=== PATIENT | female | born 1945 ===

== ENCOUNTER → 2024-10-11 12:31 | Outpatient (REF) | payer MEDICARE, SELFPAY ==
[2024-10-11 13:06] LABS: % Basophils 0.1 % (0-2); % Immature Granulocytes 0.1 % (0-0.5); % Lymphocytes 23.7 % (20.5-51.1); % Monocytes 9.3 % (1.7-9.3); % Neutrophils 66.8 % (42.2-75.2); Absolute Lymphocytes 1.8 10^3/uL (1.2-3.4); Absolute Monocytes 0.7 10^3/uL (0.1-0.6); Hemoglobin 13.4 g/dL (12.0-16.0); Mean Corp Hgb Conc. 32.7 g/dL (33.0-37.0); Mean Corpuscular Hgb 31.8 pg (27.0-31.0); Mean Corpuscular Volume 97.4 fL (81.0-99.0); Mean Platelet Volume 10.2 fL (7.4-10.4); Nucleated Red Blood Cells % 0 %; Platelet Count 272 10^3/uL (130-400); Red Blood Cell Count 4.21 10^6/uL (4.20-5.40); Red Cell Dist. Width 14.1 % (11.5-14.5); White Blood Cell Count 7.4 10^3/uL (4.8-10.8)
[2024-10-11 14:06] LABS: Free T4 1.15 ng/dl (0.78-2.19); Vitamin D, 25-OH*** 105 ng/mL (30-80)
[2024-10-11 14:19] LABS: TSH 2.08 uIU/ml (0.47-4.68)
[2024-10-11 14:22] LABS: ALT (SGPT) 14 U/L (0-35); AST (SGOT) 21 U/L (14-36); Albumin 4.1 g/dl (3.5-5.0); Alkaline Phosphatase 51 U/L (38-126); Blood Urea Nitrogen 14 mg/dl (7-17); Calcium 9.9 mg/dl (8.4-10.2); Carbon Dioxide 30 mmol/L (22-30); Chloride 106 mmol/L (98-107); Glucose 76 mg/dl (70-99); HDL Cholesterol 62 mg/dl; LDL Cholesterol, Calculated 86 mg/dl; Potassium 4.2 mmol/L (3.5-5.1); Sodium 143 mmol/L (135-145); Total Bilirubin 0.9 mg/dl (0.2-1.3); Total Cholesterol 174 mg/dl (50-199); Total Protein 6.4 g/dl (6.3-8.2); Triglyceride 132 mg/dl (10-149); Very Low Density Lipoprotein 26 mg/dl (0-30); eGFR > 60.00
[2024-10-11 14:39] LABS: Vitamin B12 < 159 pg/ml (239-931)
[2024-10-13 23:03] LABS: Total T3 (Sendout) 103 ng/dL (80-200)
== END ==
LOC: OLABN 12:31
PROVIDERS: ATTENDING PHYSICIAN Student in an Organized Health Care Education/Training Program
DX: E03.9 Hypothyroidism, unspecified (principal); E78.5 Hyperlipidemia, unspecified; E55.9 Vitamin D deficiency, unspecified; E53.8 Deficiency of other specified B group vitamins
CPT/HCPCS: 36415; 80053; 80061; 82306; 82607; 84439; 84443; 84480; 85025

== ENCOUNTER → 2024-10-22 22:20 | Outpatient (REF) | payer MEDICARE, SELFPAY ==
[2024-10-23 10:25] LABS: Urine Albumin Negative (Neg - Trace); Urine Bilirubin Negative (Negative); Urine Character Clear (Clear); Urine Color Yellow; Urine Glucose Negative (Negative); Urine Ketone Negative (Negative); Urine Leukocyte 2+ (Negative); Urine Nitrite Negative (Negative); Urine Occult Blood 1+ (Negative); Urine Specific Gravity 1.015 (<1.030); Urine Urobilinogen Negative (Neg - 1+)
[2024-10-23 10:55] LABS: Urine Squamous Cell >30 /LPF (Few)
[2024-10-23 10:56] LABS: Urine Bacteria Few (Negative); Urine Red Blood Cell 0-2 /HPF (0-2)
== END ==
LOC: OLABN 22:20
PROVIDERS: ATTENDING PHYSICIAN Student in an Organized Health Care Education/Training Program
DX: R39.15 Urgency of urination (principal)
CPT/HCPCS: 81003; 81015; 87086

== ENCOUNTER → 2024-10-25 02:30 | Outpatient (REF) | payer MEDICARE, SELFPAY ==
[2024-10-25 13:54] LABS: Urine Albumin 1+ (Neg - Trace); Urine Bilirubin Negative (Negative); Urine Character Clear (Clear); Urine Color Yellow; Urine Glucose Negative (Negative); Urine Ketone 1+ (Negative); Urine Leukocyte Negative (Negative); Urine Nitrite Negative (Negative); Urine Occult Blood Negative (Negative); Urine Urobilinogen Negative (Neg - 1+)
[2024-10-25 15:18] LABS: Urine Amorphous Seen; Urine Mucus Moderate; Urine Squamous Cell >30 /LPF (Few)
[2024-10-25 15:19] LABS: Urine Bacteria Few (Negative); Urine Red Blood Cell 0-2 /HPF (0-2)
== END ==
LOC: OLABN 02:30
PROVIDERS: ATTENDING PHYSICIAN Student in an Organized Health Care Education/Training Program
DX: R39.15 Urgency of urination (principal)
CPT/HCPCS: 81003; 81015; 87086

== ENCOUNTER → 2024-11-25 09:30 | Outpatient (REF) | payer MEDICARE, SELFPAY ==
[2024-11-25 12:14] LABS: Vitamin D, 25-OH*** > 126 ng/mL (30-80)
== END ==
LOC: OLABN 09:30
PROVIDERS: ATTENDING PHYSICIAN Student in an Organized Health Care Education/Training Program
DX: E55.9 Vitamin D deficiency, unspecified (principal)
CPT/HCPCS: 36415; 82306

== ENCOUNTER → 2025-01-12 10:30 | Outpatient (REF) | payer MEDICARE, SELFPAY ==
[2025-01-12 15:50] LABS: Urine Albumin Negative (Neg - Trace); Urine Bilirubin Negative (Negative); Urine Character Clear (Clear); Urine Color Yellow; Urine Glucose Negative (Negative); Urine Ketone Negative (Negative); Urine Leukocyte 1+ (Negative); Urine Nitrite Negative (Negative); Urine Occult Blood Negative (Negative); Urine Urobilinogen Negative (Neg - 1+)
[2025-01-12 16:01] LABS: Urine Squamous Cell 16-20 /LPF (Few)
[2025-01-12 16:02] LABS: Urine Bacteria Moderate (Negative); Urine Red Blood Cell 0-2 /HPF (0-2)
== END ==
LOC: OLABN 10:30
PROVIDERS: ATTENDING PHYSICIAN Student in an Organized Health Care Education/Training Program
DX: R35.0 Frequency of micturition (principal)
CPT/HCPCS: 81003; 81015; 87086

== ENCOUNTER → 2025-01-18 08:49 | Outpatient (REF) | payer MEDICARE, SELFPAY ==
[2025-01-18 10:34] LABS: Iron 106 ug/dl (37-170)
[2025-01-18 10:38] LABS: Urine Character Clear (Clear)
[2025-01-18 10:46] LABS: Total Iron Binding Capacity 278 ug/dl (265-497)
[2025-01-18 11:52] LABS: Urine Squamous Cell >30 /LPF (Few)
[2025-01-18 11:53] LABS: Urine Red Blood Cell 0-2 /HPF (0-2)
== END ==
LOC: OLABN 08:49
PROVIDERS: ATTENDING PHYSICIAN Student in an Organized Health Care Education/Training Program
DX: R35.0 Frequency of micturition (principal); D50.9 Iron deficiency anemia, unspecified
CPT/HCPCS: 36415; 81003; 81015; 83540; 83550; 87086

== ENCOUNTER → 2025-01-26 13:00 | Outpatient (REF) | payer MEDICARE, SELFPAY ==
[2025-01-26 20:44] LABS: Urine Character Clear (Clear)
== END ==
LOC: OLABN 13:00
PROVIDERS: ATTENDING PHYSICIAN Student in an Organized Health Care Education/Training Program
DX: R35.0 Frequency of micturition (principal); R82.90 Unspecified abnormal findings in urine
CPT/HCPCS: 81003; 87086

== ENCOUNTER → 2025-02-19 07:56 | Outpatient (REF) | payer MEDICARE, SELFPAY ==
[2025-02-19 08:22] LABS: Urine Character Clear (Clear)
[2025-02-19 08:30] LABS: Urine Squamous Cell >30 /LPF (Few); Urine White Cell 16-20 /HPF (0-5)
[2025-02-19 10:03] LABS: ALT (SGPT) < 10 U/L (0-35); AST (SGOT) 20 U/L (14-36); Albumin 4.3 g/dl (3.5-5.0); Alkaline Phosphatase 38 U/L (38-126); Blood Urea Nitrogen 12 mg/dl (7-17); Calcium 9.8 mg/dl (8.4-10.2); Carbon Dioxide 28 mmol/L (22-30); Chloride 107 mmol/L (98-107); Glucose 91 mg/dl (70-99); Magnesium 2.0 mg/dl (1.6-2.3); Potassium 3.7 mmol/L (3.5-5.1); Sodium 142 mmol/L (135-145); Total Protein 6.7 g/dl (6.3-8.2); eGFR > 60.00
[2025-02-19 10:07] LABS: Hematocrit 42.3 % (37.0-47.0); Hemoglobin 13.6 g/dL (12.0-16.0); Mean Corp Hgb Conc. 32.2 g/dL (33.0-37.0); Mean Corpuscular Volume 99.8 fL (81.0-99.0); Nucleated Red Blood Cells % 0 %; Platelet Count 254 10^3/uL (130-400); Red Cell Dist. Width 12.9 % (11.5-14.5)
== END ==
LOC: OLABN 07:56
PROVIDERS: ATTENDING PHYSICIAN Student in an Organized Health Care Education/Training Program
DX: R35.0 Frequency of micturition (principal); D50.9 Iron deficiency anemia, unspecified
CPT/HCPCS: 36415; 80053; 81003; 81015; 83735; 85025; 87086

== ENCOUNTER → 2025-02-21 10:06 | Outpatient (REF) | payer MEDICARE, SELFPAY ==
[2025-02-21 12:16] LABS: Urine Character Clear (Clear)
== END ==
LOC: OLABN 10:06
PROVIDERS: ATTENDING PHYSICIAN Student in an Organized Health Care Education/Training Program
DX: R53.0 Neoplastic (malignant) related fatigue (principal)
CPT/HCPCS: 81003; 87086

== ENCOUNTER → 2025-02-23 10:03 | Outpatient (REF) | payer MEDICARE, SELFPAY ==
[2025-02-23 13:47] LABS: Ferritin 132.0 ng/ml (11.1-264.0)
[2025-02-24 13:19] LABS: Urine Character Clear (Clear)
[2025-02-24 14:39] LABS: Urine Squamous Cell >30 /LPF (Few)
[2025-02-24 14:40] LABS: Urine Urothelial Cell 0-2 /LPF (FEW)
[2025-02-24 14:43] LABS: Urine Red Blood Cell 0-2 /HPF (0-2)
== END ==
LOC: OLABN 10:03
PROVIDERS: ATTENDING PHYSICIAN Student in an Organized Health Care Education/Training Program
DX: R77.8 Other specified abnormalities of plasma proteins (principal); D50.9 Iron deficiency anemia, unspecified; R53.0 Neoplastic (malignant) related fatigue
CPT/HCPCS: 36415; 81003; 81015; 82728; 87086